=== PATIENT | male | born 1965 | race Caucasian/White ===

== ENCOUNTER 2022-07-09 22:48 | Emergency (ER) | payer BC, MEDICAID ==
[2022-07-09 23:49] LABS: CORONAVIRUS COVID-19 NAA NEGATIVE (NEGATIVE); RESPIRATORY SYNCYTIAL VIR NAA NEGATIVE (NEGATIVE)
[2022-07-10] MEDS: Furosemide 40 MG Tab PO ONE (00:32)
== END 2022-07-10 01:05 | disposition home or self-care (01) ==
LOC: LL.ED 22:48
DX: E66.2 Morbid (severe) obesity with alveolar hypoventilation (principal); I11.0 Hypertensive heart disease with heart failure; I50.9 Heart failure, unspecified; Z68.42 Body mass index [BMI] 45.0-49.9, adult; Z20.822 Contact with and (suspected) exposure to COVID-19
CPT/HCPCS: 0241U; 99283; A9270

== ENCOUNTER 2022-07-10 21:10 | Emergency (ER) | payer BC ==
[2022-07-10] MEDS ORDERED: Sodium Chloride 0.9% 1,000 ML IV ONE (21:53)
[2022-07-10] MEDS ORDERED: Sodium Chloride 0.9% 10 ML Syringe FLUSH PRN (21:53)
[2022-07-10] MEDS ORDERED: cefTRIAXone 2 GM in Sodium Chloride 0.9% 100 ML IV ONE (21:55)
[2022-07-10] MEDS ORDERED: Azithromycin 500 MG in Sodium Chloride 0.9% 250 ML IV ONE (21:56)
[2022-07-10 22:13] LABS: HEMOGLOBIN A1C 6.5 % (4.3-5.7)
[2022-07-10] MEDS: Sodium Chloride 0.9% 10 ML Syringe FLUSH PRN ×2 (22:18→23:31)
[2022-07-10 22:35] LABS: CORONAVIRUS COVID-19 NAA NEGATIVE (NEGATIVE); RESPIRATORY SYNCYTIAL VIR NAA NEGATIVE (NEGATIVE)
[2022-07-10 23:13] LABS: ANION GAP 15.7 meq/L (7-15)
[2022-07-11] MEDS: Heparin Sodium/0.45% NaCl 500 ML IV SCH ×2 (00:15→00:30)
[2022-07-11] MEDS ORDERED: Heparin Sodium 5,000 Units/ML Vial IVPUSH PRN (00:32)
[2022-07-11] MEDS ORDERED: Potassium Chloride 20 MEQ Tab.ER PO ONE (00:37)
== END 2022-07-11 00:46 ==
LOC: LL.ED 21:10
DX: I21.4 Non-ST elevation (NSTEMI) myocardial infarction (principal); J96.01 Acute respiratory failure with hypoxia; E11.69 Type 2 diabetes mellitus with other specified complication; E87.6 Hypokalemia; R74.8 Abnormal levels of other serum enzymes; I11.0 Hypertensive heart disease with heart failure; I50.9 Heart failure, unspecified; Z20.822 Contact with and (suspected) exposure to COVID-19
CPT/HCPCS: 0241U; 36415; 71045; 80053; 80061; 82728; 83036; 83540; 83550; 83605; 83735; 83880; 84443; 84484; 85025; 86140; 87040; 93005; 96361; 96365; 96367; 96375; 99285-25; A9270-GY; J0456; J0696; J1644; J3490; J7030; J7050

== ENCOUNTER 2022-09-06 10:50 | Day surgery (SDC) | payer BC ==
[~2022-09-06 10:50] MED LIST: Midazolam 1 MG/ML 2 ML SDV ONE; Propofol 200 MG/20 ML SDV ONE
[2022-09-06] MEDS ORDERED: Sodium Chloride 0.9% 10 ML Syringe FLUSH PRN (11:00)
[2022-09-06] MEDS ORDERED: Lactated Ringers 1,000 ML IV SCH (11:00)
== END 2022-09-06 14:35 | disposition home or self-care (01) ==
LOC: LL.SDS 10:50
PROVIDERS: ATTEND Surgery
DX: Z12.11 Encounter for screening for malignant neoplasm of colon (principal); E66.01 Morbid (severe) obesity due to excess calories; E11.9 Type 2 diabetes mellitus without complications; E66.2 Morbid (severe) obesity with alveolar hypoventilation; E83.19 Other disorders of iron metabolism; Z79.899 Other long term (current) drug therapy; Z79.82 Long term (current) use of aspirin; Z79.84 Long term (current) use of oral hypoglycemic drugs; Z68.42 Body mass index [BMI] 45.0-49.9, adult; Z80.0 Family history of malignant neoplasm of digestive organs
CPT/HCPCS: 00812; J2250; J2704; J7120

== ENCOUNTER 2024-05-17 19:44 | Emergency (ER) | payer BC, MEDICAID ==
[2024-05-17] MEDS: Ketorolac 30 MG/ML SDV IM ONE (20:38)
== END 2024-05-17 20:50 | disposition home or self-care (01) ==
LOC: LL.ED 19:44
DX: S89.92XA Unspecified injury of left lower leg, initial encounter (principal); I10 Essential (primary) hypertension; E78.00 Pure hypercholesterolemia, unspecified; E11.9 Type 2 diabetes mellitus without complications; Z88.6 Allergy status to analgesic agent; Z79.84 Long term (current) use of oral hypoglycemic drugs; Z79.899 Other long term (current) drug therapy; X50.1XXA Overexertion from prolonged static or awkward postures, initial encounter; Y93.89 Activity, other specified
CPT/HCPCS: 73560-50; 96372; 99283; J1885